=== PATIENT | male | born 1965 | race Caucasian/White ===

== ENCOUNTER 2019-05-07 11:03 | Inpatient (IN) ==
[2019-05-07] MEDS ORDERED: SODIUM CHLORIDE 0.9% INJ SCH (12:15)
[2019-05-07] MEDS: PROTONIX IV SCH (13:23)
[2019-05-07] MEDS: NS 1,000 ML IV SCH (13:23)
[2019-05-07 14:04] LABS: BASO# 0.06 X1000 (0.0-0.2); BASO% 0.9 % (0.0-0.8); EOS# 0.19 X1000 (0.0-0.7); EOS% 2.8 % (0.0-10.0); HEMATOCRIT 42.9 % (42.0-52.0); HEMOGLOBIN 16.3 g/dL (14.0-18.0); IMM GRAN# 0.02 X1000 (0.0-0.04); IMM GRAN% 0.3 % (0.0-0.5); LYMPH# 1.19 X1000 (1.2-3.4); LYMPH% 17.3 % (20.5-51.1); MCH 37.2 PG (27-31); MCV 97.9 FL (81-99); MONO% 21.8 % (1.7-9.3); NEUT# 3.93 X1000 (1.4-6.5); NEUT% 56.9 % (42.2-75.2); PLT 125 X1000 (130-400); RBC 4.38 XMIL (4.7-6.1); RDW 12.4 % (11.5-14.5); WBC 6.89 X1000 (4.8-10.8)
[2019-05-07 14:39] LABS: EOS 6 % (1-10); LYMPHS 19 % (21-51); MONO 11 % (1-9); SEGS 64 % (42-75)
[2019-05-07 14:59] LABS: AGAP 14; COSMO 267
[2019-05-07 15:00] LABS: ALB/GLOB RATIO 1.3; ALBUMIN 3.3 g/dL (3.5-5.0); ALKALINE PHOSPHATASE 93 U/L (32-122); BUN 12 mg/dL (8-22); CALCIUM 8.3 mg/dL (8.8-10.2); CHLORIDE 79 mmol/L (98-107); ESTIMATED GFR > 60; GLUCOSE 682 mg/dL (70-104); GOT 24 U/L (10-34); GPT 21 U/L (10-44); POTASSIUM 4.4 mmol/L (3.5-5.1); SODIUM 116 mmol/L (136-145); TCO2 23 mmol/L (25-35); TOTAL BILIRUBIN 0.28 mg/dL (0.20-1.00); TOTAL PROTEIN 5.8 g/dL (6.3-8.3)
--- NOTE | 2019-05-07 15:00 | Diag Imaging Result Doc PS360 ---
CHEST-2 VIEWS - 05/07/2019 INDICATION: SOB COMPARISON: None FINDINGS: The lungs are normally expanded and clear. Heart size and mediastinal contours are normal. No pneumothorax or pleural effusion. IMPRESSION: Negative exam. Electronically signed by Clint Ugarte 05/07/2019 2:58 PM
[2019-05-07] MEDS ORDERED: HUMULIN R IV ONE (15:06)
[2019-05-07] MEDS: HUMALOG SUBQ SCH ×3 (16:29→22:27)
--- NOTE | 2019-05-07 20:05 | HISTORY AND PHYSICAL ---
CHIEF COMPLAINT: Polyuria, polydipsia and vision problems. HISTORY OF PRESENT ILLNESS: He is a 54-year-old white gentleman. He was seen in our clinic with the above symptoms for the last 1 week. He has not seen anybody for a physical for a long time. 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 In my office he had sodium 117, anion gap 23, and blood sugar 721. He is admitted to [facility] for DKA, impending dehydration. He was started on IV fluids and insulin. Follow up on DKA management. PAST MEDICAL HISTORY: New onset of diabetes, metabolic syndrome. PAST SURGICAL HISTORY: 1. Right shoulder surgery as well as biceps repair. 2. Right ankle surgery. MEDICATIONS: None. ALLERGIES: Not known. SOCIAL HISTORY: second time with 5 children from the previous marriage. Lives in [facility]. Smoking 1 pack a day. Socially drinks alcohol. No drug abuse. FAMILY HISTORY: Mother had history of diabetes, of complications with a heart attack at the age of 79. Father is alive. Siblings, brother had sugar problem. HEALTH MAINTENANCE: Not up-to-date on vaccinations. REVIEW OF SYSTEMS: HEENT: Vision problems. No earache. No sore throat. No headache. No neck pain. No rigidity. No goiter. No lymphadenopathies. Cardiopulmonary: No chest pain, shortness of breath, PND, orthopnea.Gastrointestinal: Abdominal cramp, slight nausea. No altered bowel habits. No bleeding per rectum. Genitourinary: No history of hesitancy, frequency, dysuria. No swelling of legs and no claudication symptoms. No back pain. Neurologic: No focal symptoms, seizures, dizziness or vertigo. PHYSICAL EXAMINATION: VITAL SIGNS: Temperature is 98.7 degrees, pulse 87, blood pressure is 154/81. GENERAL: Six feet 1 inch, 251 pounds. HEENT: Atraumatic, normocephalic. Pupils equal, reacting to light. TMs are normal. Dry mucous membranes. No oral thrush. NECK: Supple. No lymphadenopathy. No carotid bruit. No thyromegaly. CHEST: Bilateral air entry. HEART: Sounds are regular. No murmurs. ABDOMEN: Belly is soft. No signs of peritonitis. RECTAL: Deferred. NEUROLOGIC: Sensory exam is intact in both feet. Pulses are palpable. No ulcers noted. No neurological deficits. LABORATORY DATA: CBC: White cell count 6.8, hematocrit 42, platelets 125,000. Sodium 116, potassium 4.4, BUN 12, creatinine 1.0, glucose 682. DIAGNOSTIC DATA: Chest x-ray stable. ASSESSMENT AND PLAN: 1. A 54-year-old white gentleman admitted to the hospital with new onset of diabetic ketoacidosis, hyperglycemic, and dehydration. Plan is intravenous fluids and subcutaneous sliding scale with insulin coverage. 2. Check amylase and lipase in the morning. 3. Follow up on potassium, magnesium and phosphate. 4. Check the lipid profile. 5. Deep venous thrombosis and gastrointestinal prophylaxis. Diabetic teaching classes. We will start on metformin. Check the A1c and explain the natural course of the disease of diabetes, short and long-term complications. We will follow up. cc: Davidson Astudillo MD
[2019-05-08] MEDS: NS 1,000 ML IV SCH ×2 (01:13→12:28)
[2019-05-08] MEDS: HUMALOG SUBQ SCH ×6 (06:14→20:48)
[2019-05-08 06:42] LABS: BASO# 0.05 X1000 (0.0-0.2); BASO% 0.8 % (0.0-0.8); EOS# 0.28 X1000 (0.0-0.7); EOS% 4.3 % (0.0-10.0); HEMATOCRIT 40.8 % (42.0-52.0); HEMOGLOBIN 15.5 g/dL (14.0-18.0); IMM GRAN# 0.02 X1000 (0.0-0.04); IMM GRAN% 0.3 % (0.0-0.5); LYMPH% 18.3 % (20.5-51.1); MCH 37.2 PG (27-31); MCV 97.8 FL (81-99); MONO# 1.47 X1000 (0.11-0.59); MONO% 22.4 % (1.7-9.3); MPV 13.3 FL (7.4-10.4); NEUT# 3.53 X1000 (1.4-6.5); NEUT% 53.9 % (42.2-75.2); PLT 128 X1000 (130-400); RBC 4.17 XMIL (4.7-6.1); RDW 12.6 % (11.5-14.5); WBC 6.55 X1000 (4.8-10.8)
[2019-05-08 07:03] LABS: MAGNESIUM 1.8 mg/dL (1.5-2.7)
[2019-05-08 07:28] LABS: AGAP 16; ALB/GLOB RATIO 0.9; ALBUMIN 2.8 g/dL (3.5-5.0); ALKALINE PHOSPHATASE 59 U/L (32-122); BUN 12 mg/dL (8-22); CALCIUM 7.3 mg/dL (8.8-10.2); CHLORIDE 86 mmol/L (98-107); CHOLESTEROL 1131 mg/dL (0-200); COSMO 253; CREATININE 1.3 mg/dL (0.7-1.2); ESTIMATED GFR > 60; GLUCOSE 305 mg/dL (70-104); GOT 49 U/L (10-34); GPT 14 U/L (10-44); TCO2 18 mmol/L (25-35); TOTAL BILIRUBIN < 0.15 mg/dL (0.20-1.00); TOTAL PROTEIN 5.8 g/dL (6.3-8.3); TRIGLYCERIDES > 4425 mg/dL (39-160)
[2019-05-08 07:30] LABS: HDL 4 mg/dL (35-55); POTASSIUM 5.2 mmol/L (3.5-5.1); SODIUM 121 mmol/L (136-145)
[2019-05-08] MEDS: VITAMIN B-12 PO SCH (09:14)
[2019-05-08] MEDS: GLUCOPHAGE PO SCH ×3 (09:14→17:02)
[2019-05-08] MEDS: LOVENOX SUBQ SCH (09:15)
--- NOTE | 2019-05-08 10:18 | EKG Report ---
Test Performed on : 05/08/2019 06:22:44 AM Test Reason : cp Blood Pressure : / mmHG Vent. Rate : 068 BPM Atrial Rate : 068 BPM P-R Int : 160 ms QRS Dur : 110 ms QT Int : 420 ms P-R-T Axes : 081 073 091 degrees QTc Int : 446 ms Normal sinus rhythm. Nonspecific T wave abnormality Abnormal ECG No previous ECGs available Unconfirmed Result
[2019-05-08] MEDS ORDERED: TYLENOL PO PRN (11:10)
[2019-05-08] MEDS ORDERED: NACL 3% 500 ML IV ONE (11:12)
--- NOTE | 2019-05-08 12:12 | PROGRESS NOTE ---
DATE: 05/08/2019 SUBJECTIVE: Ms Newsome is doing fairly well. He is he is losing weight. He has been newly detected diabetic. PLAN: He is on normal saline at present and metformin. I am going to put him on sliding scale. Will repeat his sodium. The last sodium was 121 and he is on normal saline at 80 mL which we probably will give him a trial of 3% saline today. cc: MD Davidson Young MD
[2019-05-08] MEDS: PROTONIX IV SCH (12:27)
[2019-05-08] MEDS: NICODERM PATCH TD SCH (14:29)
[2019-05-09] MEDS: NS 1,000 ML IV SCH ×2 (02:01→15:04)
[2019-05-09] MEDS: HUMALOG SUBQ SCH ×8 (06:28→23:05)
[2019-05-09 09:23] LABS: SODIUM 121 mmol/L (136-145)
[2019-05-09 09:32] LABS: AGAP 14; BUN 8 mg/dL (8-22); CALCIUM 7.9 mg/dL (8.8-10.2); CHLORIDE 90 mmol/L (98-107); COSMO 253; CREATININE 0.8 mg/dL (0.7-1.2); ESTIMATED GFR > 60; GLUCOSE 286 mg/dL (70-104); TCO2 17 mmol/L (25-35)
[2019-05-09] MEDS: NICODERM PATCH TD SCH (09:37)
[2019-05-09] MEDS: LOVENOX SUBQ SCH (09:37)
[2019-05-09] MEDS: VITAMIN B-12 PO SCH (09:37)
[2019-05-09] MEDS: GLUCOPHAGE PO SCH ×3 (09:37→16:04)
[2019-05-09] MEDS: PROTONIX IV SCH (11:38)
--- NOTE | 2019-05-09 12:27 | PROGRESS NOTE ---
DATE: 05/09/2019 LOCATION: Room 219A. SUBJECTIVE: His vital signs are stable. Chest x-ray was unremarkable. Lungs are clear. Heart sounds are normal. His sodium continues to be low at 121, potassium was 4, blood sugar was 286, calcium was 7.9. This could be inappropriate ADH secretion. We need to make sure that he does not have any intracranial lesion. We will do the CT scan of the brain. Chest x-ray, however, is normal. cc: MD Davidson Young MD
[2019-05-09 13:06] LABS: CHOLESTEROL 1126 mg/dL (0-200); DIRECT LDL 82 mg/dL; HDL 5 mg/dL (35-55); TRIGLYCERIDES > 4425 mg/dL (39-160)
[2019-05-09] MEDS ORDERED: HALL'S COUGH LOZENGE MT PRN (15:56)
--- NOTE | 2019-05-09 17:46 | Diag Imaging Result Doc PS360 ---
EXAM: CT HEAD W/O CONTRAST HISTORY: head aches, persistent hyponatremia TECHNIQUE: CT head without contrast COMPARISON: None. FINDINGS: No parenchymal hemorrhage. No epidural or subdural hematoma. No subarachnoid hemorrhage. No mass identified on this noncontrasted exam. No hydrocephalus. Possible old lacunar infarct in the left thalamus. No sinus opacification. IMPRESSION: No hemorrhage. Negative brain CT without contrast. This exam was performed using automated exposure control, adjustment of mA or kV according to patient size, and/or use of iterative reconstruction technique. Electronically signed by Moncho Taveras 05/09/2019 5:43 PM
[2019-05-09] MEDS: TRICOR PO SCH (20:57)
[2019-05-10] MEDS: NS 1,000 ML IV SCH ×2 (03:04→15:20)
[2019-05-10] MEDS: HUMALOG SUBQ SCH ×4 (06:25→21:59)
[2019-05-10 07:53] LABS: BASO# 0.06 X1000 (0.0-0.2); EOS# 0.24 X1000 (0.0-0.7); HEMATOCRIT 42.1 % (42.0-52.0); HEMOGLOBIN 15.9 g/dL (14.0-18.0); IMM GRAN# 0.05 X1000 (0.0-0.04); IMM GRAN% 0.8 % (0.0-0.5); LYMPH# 1.06 X1000 (1.2-3.4); LYMPH% 17.5 % (20.5-51.1); MCH 37.3 PG (27-31); MCHC 37.8 g/dL (33-37); MCV 98.8 FL (81-99); MONO# 1.13 X1000 (0.11-0.59); MONO% 18.7 % (1.7-9.3); PLT 116 X1000 (130-400); RBC 4.26 XMIL (4.7-6.1); RDW 12.7 % (11.5-14.5); WBC 6.04 X1000 (4.8-10.8)
[2019-05-10 08:15] LABS: EOS 6 % (1-10); LYMPHS 32 % (21-51); MONO 2 % (1-9); SEGS 60 % (42-75)
[2019-05-10 08:17] LABS: AGAP 14; CALCIUM 8.4 mg/dL (8.8-10.2); CHLORIDE 88 mmol/L (98-107); COSMO 259; ESTIMATED GFR > 60; GLUCOSE 283 mg/dL (70-104); POTASSIUM 4.8 mmol/L (3.5-5.1); SODIUM 124 mmol/L (136-145); TCO2 22 mmol/L (25-35)
[2019-05-10 08:20] LABS: BUN 10 mg/dL (8-22); CREATININE 0.9 mg/dL (0.7-1.2)
[2019-05-10] MEDS: NICODERM PATCH TD SCH (08:50)
[2019-05-10] MEDS: VITAMIN B-12 PO SCH (08:51)
[2019-05-10] MEDS: LIPITOR PO SCH (08:51)
[2019-05-10] MEDS: LOVENOX SUBQ SCH (08:52)
[2019-05-10] MEDS: GLUCOPHAGE PO SCH ×3 (08:52→16:44)
[2019-05-10] MEDS: PROTONIX IV SCH (11:58)
--- NOTE | 2019-05-10 21:18 | PROGRESS NOTE ---
DATE: 05/10/2019 SUBJECTIVE: Events noted over the weekend: Blood sugar is slowly coming down. Dr. Harp started on Lipitor and fenofibrate and sodium levels are decreased, probably due to combination of high triglycerides and glucose. Also, 3% saline was given. CT head was negative. PHYSICAL EXAMINATION: Vital signs: Temperature is 98 degrees, pulse 74, blood pressure is stable. HEENT: Within normal limits. Neck: Supple. No lymphadenopathy. Chest: Clear. Heart: Sounds are regular. Abdomen: Belly is soft, nontender. Neurologic: No focal deficits. INVESTIGATIONS: CBC: White cell count 6, hematocrit 42, platelets 116,000. Sodium 124, potassium 4.8, BUN 10, creatinine 0.9, glucose 283. ASSESSMENT AND PLAN: 1. New onset of diabetes. 2. Dyslipidemia. 3. Hypertension and abdominal pain. Ruled out amylase. I spoke to the patient about the short- term long-term complication. We will check the A1c, the SMA 7. Discontinue hypertonic saline. 4. Hyponatremia due to pseudo with a high triglycerides. Continue on fenofibrate and Lipitor. I think when he is discharged, I am going to put him on a high dose of statin therapy along with vascepa and continue on metformin with diet and slowly up titrate the medicines. Check the A1c. 5. Deep vein thrombosis and gastrointestinal prophylaxis. 6. Headache. CT head is negative. Low sodium and calculated osmolality is 292. We will do in the morning measured osmolality and we will follow up. LEVEL OF DOCUMENTATION: 25 minutes. cc: Davidson Astudillo MD MTDD
[2019-05-10] MEDS: TRICOR PO SCH (21:59)
[2019-05-11] MEDS: NS 1,000 ML IV SCH (03:35)
[2019-05-11 06:10] LABS: AGAP 6; BUN 9 mg/dL (8-22); CALCIUM 7.8 mg/dL (8.8-10.2); CHLORIDE 91 mmol/L (98-107); COSMO 255; CREATININE 0.6 mg/dL (0.7-1.2); ESTIMATED GFR > 60; GLUCOSE 286 mg/dL (70-104); POTASSIUM 5.8 mmol/L (3.5-5.1); SODIUM 122 mmol/L (136-145); TCO2 25 mmol/L (25-35)
[2019-05-11] MEDS: HUMALOG SUBQ SCH ×4 (06:16→21:42)
[2019-05-11] MEDS: GLUCOPHAGE PO SCH ×3 (07:39→16:14)
[2019-05-11] MEDS: LOVENOX SUBQ SCH ×2 (07:40→09:27)
[2019-05-11] MEDS: NICODERM PATCH TD SCH ×2 (07:40→09:27)
[2019-05-11] MEDS: VITAMIN B-12 PO SCH ×2 (07:40→09:27)
[2019-05-11] MEDS: LIPITOR PO SCH ×2 (07:40→09:27)
[2019-05-11] MEDS: PROTONIX PO SCH (09:04)
[2019-05-11] MEDS: NON-FORMULARY MED PO SCH (09:04)
--- NOTE | 2019-05-11 21:18 | PROGRESS NOTE ---
DATE: 05/11/2019 SUBJECTIVE: The patient is feeling a little better. No abdominal pain. REVIEW OF SYSTEMS: None reported. PHYSICAL EXAMINATION: Temperature is 98 degrees, pulse 76, blood pressure is stable. HEENT exam within normal limits. Neck is supple. Chest is clear. Heart sounds are regular. Belly is soft, nontender. No obvious deficits. INVESTIGATIONS: Sodium 122, potassium 5.8, chloride 91, BUN 9, creatinine 0.6, glucose 286. A1c 13.4. ASSESSMENT AND PLAN: 1. New onset of type 2 diabetes. A1c 13.3. Metformin 850 t.i.d., started on Jardiance 25 daily. Continue on diet. 2. Hyponatremia. Measured osmolality is 304. This could be from hyperglycemia. Also possible from hyperlipidemia. Triglycerides are high and he is euvolemic. Chest x-ray was stable. CT head is negative. Rule out SIADH. Measure the urine sodium, urine osmolality, cortisol, and TSH. 3. Hyperlipidemia, on high-intensity statin therapy, Lipitor and Vascepa, at the time of discharge. 4. Nicotine abuse. Quit smoking. 5. DVT/GI prophylaxis. 6. Discontinue IV fluids. We will follow up. LEVEL OF DOCUMENTATION: 35 minutes. cc: Davidson Astudillo MD
[2019-05-11] MEDS: TRICOR PO SCH (21:42)
[2019-05-12] MEDS: HUMALOG SUBQ SCH ×4 (05:55→17:15)
[2019-05-12] MEDS: PROTONIX PO SCH (09:05)
[2019-05-12] MEDS: VITAMIN B-12 PO SCH (09:05)
[2019-05-12] MEDS: LIPITOR PO SCH (09:06)
[2019-05-12] MEDS: GLUCOPHAGE PO SCH ×3 (09:06→17:16)
[2019-05-12] MEDS: NICODERM PATCH TD SCH (09:07)
[2019-05-12] MEDS: LOVENOX SUBQ SCH (09:07)
[2019-05-12] MEDS: NON-FORMULARY MED PO SCH (09:10)
[2019-05-12 09:34] LABS: AGAP 13; CHLORIDE 88 mmol/L (98-107); GLUCOSE 224 mg/dL (70-104); TCO2 24 mmol/L (25-35)
[2019-05-12 09:35] LABS: BUN 15 mg/dL (8-22); CALCIUM 8.7 mg/dL (8.8-10.2); COSMO 259
[2019-05-12 09:36] LABS: SODIUM 125 mmol/L (136-145)
[2019-05-12 09:39] LABS: POTASSIUM 7.2 mmol/L (3.5-5.1)
[2019-05-12 09:54] LABS: FREE T4 0.89 ng/dL (0.93-1.70); TSH 4.6 uIUmL (0.27-4.20)
[2019-05-12] MEDS ORDERED: KAYEXALATE PO ONE (09:56)
[2019-05-12] MEDS ORDERED: CALCIUM GLUCONATE 1 GM in NS 50 ML IV ONE (10:00)
--- NOTE | 2019-05-12 10:09 | EKG Report ---
Test Performed on : 05/12/2019 10:07:58 AM Test Reason : high potassium Blood Pressure : / mmHG Vent. Rate : 067 BPM Atrial Rate : 067 BPM P-R Int : 158 ms QRS Dur : 104 ms QT Int : 404 ms P-R-T Axes : 076 030 094 degrees QTc Int : 426 ms Normal sinus rhythm. T wave abnormality, consider lateral ischemia Abnormal ECG When compared with ECG of 08-MAY-2019 06:22, No significant change was found Unconfirmed Result
[2019-05-12 14:53] LABS: AGAP 14; BUN 13 mg/dL (8-22); CALCIUM 9.4 mg/dL (8.8-10.2); CHLORIDE 90 mmol/L (98-107); COSMO 263; ESTIMATED GFR > 60; GLUCOSE 197 mg/dL (70-104); POTASSIUM 4.1 mmol/L (3.5-5.1); SODIUM 128 mmol/L (136-145); TCO2 24 mmol/L (25-35)
[2019-05-12] MEDS ORDERED: FLU VACCINE IM ONE (16:13)
[2019-05-12] MEDS ORDERED: PREVNAR 13 IM ONE (16:14)
[2019-05-12 17:11] VITALS: BP 141/84
--- NOTE | 2019-05-14 19:25 | DISCHARGE SUMMARY ---
ADMISSION DATE: 05/07/2019 DISCHARGE DATE: 05/12/2019 DISCHARGING DIAGNOSES: 1. New onset of type 2 diabetes. 2. Pseudohyponatremia, due to hyperlipidemia and hyperglycemia. 3. Hyperkalemia, due to hemolysis. 4. Metabolic syndrome. 5. Tobacco abuse. BRIEF HISTORY: Please see the H and P that was done 05/07/2019. In brief, he is a 54-year-old white gentleman who was admitted to the hospital from our office with polyuria, polydipsia, vision problem, with new onset of DKA with blood sugar 700 and anion gap 18, low sodium. HOSPITAL COURSE: He was given IV fluids. Followup hemoglobin A1c 13.2. He has significant hyperlipidemia, triglycerides more than 5000. Cholesterol 1200. The patient was started on diabetic teaching classes and was initiated on metformin and Jardiance sliding scale with insulin coverage. Blood sugars came back below 200. However, persistent low sodium and hyperkalemia noted. The patient had normal CT head, normal chest x-ray. EKG did not show any hyperkalemic changes. Repeat CBC showed slight hemolysis noted. The patient was given Kayexalate. Further workup for hypernatremia. Patient was ruled out for SIADH. Urine sodium levels were high and the patient has a normal cortisol level, normal thyroid function tests, and repeat SMA 7 showed sodium 128. Most likely, this is related to hyperlipidemia with high triglycerides. The patient was advised to quit smoking. He was given glucometer, outpatient diabetic teaching classes. LABS: CBC: White cell count 6, hematocrit 42, platelets 116,000. Sodium 128, potassium 4.1, BUN 13, creatinine 1.0, glucose 200. Hemoglobin A1c 13.2, triglycerides more than 5000. Cortisol levels were normal. Patient was discharged home with the following instructions: 1. Influenza vaccine 05/12/2019. 2. Pneumococcal vaccine 13, 05/12/2019. 3. Metformin 850 t.i.d. 4. Jardiance 25 daily. 5. Lipitor 80 daily. 6. Nicotine patch 1 patch daily. 7. Protonix 40 daily. 8. B12 500 mcg daily. 9. Aspirin 81 mg daily. 10. Vascepa 2 g p.o. b.i.d. 11. Follow up in my office for glucometer readings and outpatient diabetic teaching classes. cc: Davidson Astudillo MD
== END 2019-05-12 18:35 | disposition home or self-care (01) | DRG 638 ==
LOC: DIRADM 11:03 → 2N 12:20
PROVIDERS: ADMIT Internal Medicine; ATTEND Internal Medicine